=== PATIENT | male | born 1980 | race Caucasian/White ===

== ENCOUNTER 2017-08-12 13:37 | Outpatient (CLI) | payer OTHER | END 2017-08-12 17:43 | disposition home or self-care (01) | LOC: DCC 13:37 | DX: K74.60 Unspecified cirrhosis of liver (principal); I50.9 Heart failure, unspecified; J90 Pleural effusion, not elsewhere classified; N18.6 End stage renal disease; Z99.2 Dependence on renal dialysis | CPT/HCPCS: G0463 ==

== ENCOUNTER 2017-08-25 14:43 | Outpatient (CLI) | payer OTHER | END 2017-08-25 16:01 | disposition home or self-care (01) | LOC: DCC 14:43 | DX: K74.60 Unspecified cirrhosis of liver (principal); I12.0 Hypertensive chronic kidney disease with stage 5 chronic kidney disease or end stage renal disease; N18.6 End stage renal disease; R00.0 Tachycardia, unspecified; I50.9 Heart failure, unspecified; Z99.2 Dependence on renal dialysis; E83.51 Hypocalcemia; E21.3 Hyperparathyroidism, unspecified | CPT/HCPCS: G0463 ==